=== PATIENT | male | born 1935 | race Caucasian/White ===

== ENCOUNTER 2022-12-25 13:44 | Emergency (ER) | payer OTHER, MEDICARE ==
[2022-12-25 13:56] VITALS: BP 126/98; PULSE 77; RESP 18; TEMP 98.5; BMI 30.2
== END 2022-12-25 14:50 | disposition home or self-care (01) ==
LOC: FER 13:44
PROC: 09C37ZZ Extirpation of Matter from Right External Auditory Canal, Via Natural or Artificial Opening (ICD-10-PCS; principal; 2022-12-25)
DX: T16.1XXA Foreign body in right ear, initial encounter (principal)
CPT/HCPCS: 99283-25